=== PATIENT | female | born 2000 | race Caucasian/White ===

== ENCOUNTER 2021-05-09 12:55 | Outpatient (CLI) | payer OTHER, SELFPAY ==
[2021-05-09 13:28] VITALS: TEMP 36.1
[2021-05-09 13:29] VITALS: BP 120/74; PULSE 95; O2SAT 98
[2021-05-09 13:37] VITALS: BMI 26.3
--- NOTE | 2021-05-10 02:50 | OB.TRI.NOTE ---
HPI - General HPI Narrative DEEPIKA ALARCON, is a 20 F at 36.0 weeks gestation who presents to triage for decreased movement. Patient recently diagnosed COVID + and stated has not felt any movement today. Denies any loss of fluid or vaginal bleeding. Maternal Data Information ROSS Calculator Estimated Delivery Date Method Current WG Current Estimate 06/06/21 Manual 36w 1d PFSH PFSH Home Medications polyethylene glycol 3350 [Miralax] 17 g PO PRN PRN 05/09/21 [History Last Taken 05/02/21] [id number]-[id number]-FA [] 1 tab PO DAILY 05/09/21 [History Last Taken 05/09/21] Allergy/AdvReac Type Severity Reaction Status Date / Time No Known Allergies Allergy Verified 05/09/21 13:34 ROS Eyes Eyes: Denies blurry vision Cardiovascular Cardiovascular: Reports none; Denies chest pain at rest, chest pain with activity or dizziness Respiratory/Chest Respiratory/Chest: Denies cough or dyspnea Gastrointestinal Gastrointestinal: Reports none and other; Denies diarrhea or vomiting Genitourinary Genitourinary: Denies dysuria Musculoskeletal Musculoskeletal: Reports none Integumentary Integumentary: Reports none; Denies rash Neurologic Neurologic: Denies dizziness, headache(s) or other visual disturbances Psychiatric Psychiatric: Reports none Physical Exam Const alert and no apparent distress General Appearance: cooperative Orientation / Consciousness: awake Exam Limitations: no limitations HEENT normocephalic Eyes General Eye: normal appearance of both eyes Neck full ROM Chest inspection of chest normal Resp normal respiratory effort and normal air movement Effort and Inspection: symmetric chest movement Auscultation: clear to auscultation bilaterally Cardio regular rate GI soft to palpation, non-tender and non-distended Inspection: and other Back/Spine normal ROM Extremity full ROM, normal capillary refill and no calf tenderness Skin no rashes or lesions noted Neuro oriented x3 and CN's II-XII intact bilaterally Psych mental status grossly normal NST FHR Rate Baby A Baseline: 150 Variability:: Moderate Accelerations:: 15 x 15 Decelerations:: None NST Reactive:: Yes FHR Category:: Category I Uterine Activity:: occasional contractions noted Assessment & Plan (1) 36 weeks gestation of : (2) Decreased movement: QUALIFIERS: Fetus number: single or unspecified fetus Trimester: third trimester Qualified Code(s): O36.8130 - Decreased movements, third trimester, not applicable or unspecified PLAN: NST reactive Cat. 1 tracing Patient feeling movement while on monitor Educated on kick counts and PTL precautions D/C home with follow up in office
== END 2021-05-09 14:45 | disposition home or self-care (01) ==
LOC: WPOUT 13:18 → WP 13:19
PROVIDERS: Referring Provider Advanced Practice Midwife; Visit Provider Advanced Practice Midwife
DX: O36.8130 Decreased fetal movements, third trimester, not applicable or unspecified (principal); Z3A.36 36 weeks gestation of pregnancy
CPT/HCPCS: 59025; 59050; 99218; G0378

== ENCOUNTER 2021-06-09 19:00 | Inpatient (IN) | payer OTHER, SELFPAY ==
[2021-06-09 19:30] VITALS: BMI 27.6
[2021-06-09 19:33] VITALS: PULSE 101; O2SAT 100
[2021-06-09 19:36] VITALS: BP 117/76; PULSE 92
[2021-06-09 19:38] VITALS: TEMP 36.6
[2021-06-09] MEDS: Lactated Ringers 1,000 ML 50 ML IV (19:40)
[2021-06-09 19:57] LABS: Absolute Lymphocyte Count 2.84 X10^3/uL (0.83-4.51); Absolute Neutrophil Count 8.9 X10^3/uL (2.0-7.7); Basophil# 0.03 X10^3/uL; Basophil% 0.2 % (0-1); Eosinophil# 0.03 X10^3/uL; Eosinophils% 0.2 % (0-5); Hematocrit 36.9 % (37-47); Hemoglobin 11.6 g/dL (12.0-15.0); Lymphocyte # 2.84 X10^3/ul (0.83-4.51); Lymphocyte % 22.4 % (19-41); Mean Corp Hgb Conc 31.4 g/dL (32-36); Mean Corpuscular Hgb 25.3 pg (27.0-32.0); Mean Corpuscular Volume 80.6 fL (81-99); Mean Platelet Vol. 12.9 fl (6.2-12.0); Monocyte# 0.74 X10^3/uL; Monocyte% 5.8 % (0-10); NRBC Flagged by Analyzer 0 % (0-5); Neutrophil # 8.94 X10^3/uL (2.7-7.7); Neutrophil % 70.8 % (47-70); Platelet Count 208 K/mm3 (150-450); RBC Distribution Width CV 15.8 % (11.6-14.6); RBC Distribution Width SD 45.5 fl (35.1-43.9); Red Blood Count 4.58 M/mm3 (4.2-5.4); White Blood Count 12.7 K/mm3 (4.4-11.0)
[2021-06-09] MEDS: miSOPROStol 25 MCG TABLET PO (20:23)
[2021-06-09] MEDS: 0.9% Normal Saline Single 100 ML IV.SOLN. INTRA-UTER (20:48)
--- NOTE | 2021-06-09 20:54 | HP.PCM.OB_ITS ---
HPI - General General Date of Admission: 06/09/21 HPI Narrative DEEPIKA ALARCON, is a 20 F who presents at 40w3d for IOL. Her father just this afternoon from [employer]. Desired an induction as soon as possible given family situation. No vb, lof, ctx. Good FM. Maternal Data Information ROSS Calculator Estimated Delivery Date Method Current WG Current Estimate 06/06/21 Manual 40w 3d PFSH PFSH Home Medications polyethylene glycol 3350 [Miralax] 17 g PO PRN PRN 05/09/21 [History Last Taken 05/02/21] [id number]-khs-Tr-FA [] 1 tab PO DAILY 05/09/21 [History Last Taken 06/09/21 08:00] fluticasone propionate [Flonase] 1 spray INTRANASAL PRN PRN 06/09/21 [History Last Taken Unknown] Allergy/AdvReac Type Severity Reaction Status Date / Time No Known Allergies Allergy Verified 06/09/21 19:33 Surgical History History of surgery Social History Smoking Status: Never smoker History Elective abortions Hx Para 0 Spontaneous abortions Hx # Term Pregnancies Ectopic pregnancies Hx # Pregnancies Multiple births # of living children NST FHR Rate Baby A Baseline: 145 Variability:: Moderate Accelerations:: 15 x 15 Decelerations:: None NST Reactive:: Yes Vital Signs Vital Signs Vital Signs: Weight Weight: 181 lb 9.6 oz Body Mass Index (BMI) 27.6 Physical Exam Const alert and no apparent distress General Appearance: comfortable GI soft to palpation and non-tender Extremity normal to inspection Skin no rashes or lesions noted Labs Labs Labs: Blood Type Pending Antibody Screen Pending Hct 36.9 % (37-47) L Hgb 11.6 g/dL (12.0-15.0) L Assessment & Plan (1) 40 weeks gestation of : PLAN: - Admit for scheduled IOL - Routine intrapartum care - Intracervical rush placed in usual fashion and Cytotec PO given - Epidural PRN - PCN for GBS positive - Rapid Covid negative - Pelvis adequate and EFW expected to be less than 4,500 grams - Anticipate vaginal delivery (2) Primiparous: (3) Positive GBS test:
[2021-06-09] MEDS: Acetaminophen 500 MG Tablet PO (21:32)
[2021-06-09 21:37] VITALS: BP 106/67; PULSE 84; TEMP 36.4
[2021-06-09 21:38] VITALS: PULSE 94; O2SAT 100
[2021-06-10] VITALS (51 sets, daily range): BP systolic 93–124; BP diastolic 43–94; PULSE 70–127; RESP 16–46; TEMP 36.1–36.8; O2SAT 86–100
[2021-06-10] MEDS: Oxytocin 30 units/NS 500 ml 30 UNITS/500 ML IV.SOLN IV (01:27)
[2021-06-10] MEDS: Lactated Ringers 500 ML 999 ML IV ×3 (02:08→04:40)
[2021-06-10] MEDS: Penicillin G 3,000,000 Units 50 ML 100 UNITS IV (02:24)
[2021-06-10] MEDS: fentaNYL-bupivacaine (epidural) 100 ML BAG EPIDURAL (03:01)
[2021-06-10] MEDS: Sodium Citrate/Citric Acid 30 ML UDC PO (06:40)
[2021-06-10] MEDS: Acetaminophen 500 MG Tablet PO (06:42)
--- NOTE | 2021-06-10 06:43 | PCM.PN.BLA ---
Progress Note Patient complete and pushing for about 45 min. FHT 160/mod chad/+recurrent variable decels and occasional late decels with pushing/+accels. Cvx 0/100/0. Patient with good pushing effort, narrow pubic arch, no descent noted with pushing. Suspect CPD in the setting of recurrent variable decelerations with pushing. Discussed section including r/b/a and patient desires to proceed with section.
[2021-06-10] MEDS: Cefazolin 2 GM in 0.9% Normal Saline 100 ML IV (06:57)
--- NOTE | 2021-06-10 07:55 | PCM.OPRPT ---
Problems Associated Problem List Diagnoses (1) Primiparous: (2) 40 weeks gestation of : Report of Operation Date of Procedure: 06/10/21 Pre-Operative Diagnosis: 40 week gestation, CPD, intolerance to labor Post-Operative Diagnosis: As above Surgery/Procedure Performed:: Primary low transverse section Description of Surgical Findings:: Narrow pelvis. Thick meconium stained fluid. Normal-appearing placenta with three-vessel cord. Infant in vertex presentation. Normal-appearing uterus, bilateral tubes, bilateral ovaries. Surgeon: Eve Mccarthy gastrointestinal technician: Hector Estes Type of Anesthesia: Epidural Special Medications: None Specimen's removed: Placenta Drains: Shetty Estimated Blood Loss (mL): 500 Fluids Replaced: 1200 Description of Procedure: Patient was complete and pushing for about 30 minutes. A narrow pubic arch was felt with pushing, and CPD was suspected. The patient was having recurrent variable decelerations with pushing. Decision was made to proceed with a section for intolerance and CPD. Patient was taken to the operating room where epidural anesthesia was found to be adequate. She was prepped and draped in dorsal position with a leftward tilt. A Pfannenstiel skin incision was made using a scalpel and this was carried down to the underlying layer of fascia. The fascia was incised in the midline. The fascia was extended laterally using Franks scissors. The fascia was dissected off of the rectus muscles using combination of sharp and blunt dissection. The rectus muscles were in the midline. The peritoneum was entered bluntly with good visualization of the bladder. The incision was extended bluntly. A bladder flap was created. A low transverse incision was made on the uterus with a scalpel. The infant's head was flexed and brought to the hysterotomy. The 's head followed by body was delivered without any force or delay. A viable male infant was delivered atraumatically and the cord was clamped and cut immediately. The infant was handed off to the nursery staff. Cord gases were obtained. The placenta was removed with manual extraction. The uterus was cleared of all clot and debris. Uterus was exteriorized. Hysterotomy was closed in a running locked fashion using Vicryl. Uterus was placed back into the abdomen. FloSeal was placed over the corners of the hysterotomy and pressure applied. Hemostasis noted. The peritoneum was closed in a running fashion with Vicryl. The fascia was closed with PDS in a running fashion. Subcutaneous space was irrigated and made hemostatic with the Bovie cautery. The subcutaneous space was reapproximated with Vicryl. The skin was closed in subcuticular fashion using Vicryl. A dressing was placed. Instrument, sponge, needle counts were correct. The patient was taken recovery in stable condition. Apgars 6,8. Grafts/Implants Used: None Complications None Admit VTE Documentation VTE Present on Admission: No VTE Mechan Device Prophylaxis: SCD's VTE Pharm Prophylaxis ordered?: No
[2021-06-10] MEDS: Oxytocin 30 units/NS 500 ml 30 UNITS/500 ML IV.SOLN 167 UNITS IV (08:28)
[2021-06-10] MEDS: Ketorolac 30 MG/ML Syringe IV ×3 (08:36→21:14)
[2021-06-10] MEDS: 0.9% Saline Lock 10 ML Syringe IV (08:37)
[2021-06-10] MEDS: Lactated Ringers 1,000 ML 100 ML IV (11:50)
[2021-06-10] MEDS: Acetaminophen 500 MG Tablet 1000 MG PO ×2 (12:37→19:01)
[2021-06-11 00:15] VITALS: BP 93/53; PULSE 68; RESP 16; TEMP 36.3
[2021-06-11] MEDS: Acetaminophen 500 MG Tablet 1000 MG PO ×4 (00:18→18:35)
[2021-06-11 03:07] VITALS: BP 88/47; BP 88/52; PULSE 81; RESP 16; TEMP 36.2; O2SAT 73
[2021-06-11 03:31] VITALS: BP 101/62; PULSE 74; RESP 16
[2021-06-11] MEDS: Ketorolac 30 MG/ML Syringe IV (03:33)
[2021-06-11 05:27] LABS: Hematocrit 27.6 % (37-47); Mean Corp Hgb Conc 32.6 g/dL (32-36); Mean Corpuscular Hgb 26.1 pg (27.0-32.0); Mean Platelet Vol. 12.5 fl (6.2-12.0); Platelet Count 155 K/mm3 (150-450); RBC Distribution Width CV 16.3 % (11.6-14.6); RBC Distribution Width SD 46.1 fl (35.1-43.9); Red Blood Count 3.45 M/mm3 (4.2-5.4); White Blood Count 12.8 K/mm3 (4.4-11.0)
--- NOTE | 2021-06-11 07:26 | PCM.PN.OB ---
Subjective Subjective Patient seen at bedside. Sitting up feeding . Pain is controlled with medication. Ambulating and voiding without difficulty. Passing flatus. Denies any SOB, CP , dizziness or headache. with minimal support. Desires discharge home tomorrow. Objective Data Objective Data Vital Signs: Vital Signs Temp Pulse Resp BP Pulse Ox 97.2 F L 74 16 101/62 73 06/11/21 03:07 06/11/21 03:31 06/11/21 03:31 06/11/21 03:31 06/11/21 03:07 Oxygen Delivery Method Room Air Weight: 181 lb 9.6 oz Body Mass Index (BMI) 27.6 Intake & Output: Intake and Output for Last 24 Hours 06/09/21 06/10/21 06/11/21 23:59 23:59 23:59 Intake Total 228.33 / 228.33 5044.44 / 5044.44 Output Total 1450 / 1450 500 / 500 Balance 228.33 / 228.33 3594.44 / 3594.44 -500 / -500 Lab / Micro Data Result Diagrams: 06/11/21 05:15 Labs: Laboratory Results - last 24 hr 06/11/21 05:15: WBC 12.8 H, RBC 3.45 L, Hgb 9.0 L, Hct 27.6 L, MCV 80.0 L, MCH 26.1 L, MCHC 32.6, RDW Std Deviation 46.1 H, RDW Coeff of Harshad 16.3 H, Plt Count 155, MPV 12.5 H Micro: Microbiology 06/09/21 19:45 Nasal Secretion SARS-CoV-2 Antigen (Rapid) - Final ROS Eyes Eyes: Denies blurry vision, change in vision or spots in vision ENT HEENT: Denies dizziness or headache(s) Cardiovascular Cardiovascular: Denies abdominal pain, chest pain or dyspnea Respiratory/Chest Respiratory/Chest: Denies cough, dyspnea, shortness of breath at rest or shortness of breath with exertion Gastrointestinal Gastrointestinal: Denies abdominal pain, diarrhea or vomiting Genitourinary Genitourinary: Denies change in urinary stream, difficulty urinating or dysuria Musculoskeletal Musculoskeletal: Reports none Integumentary Integumentary: Denies rash Neurologic Neurologic: Denies dizziness, headache(s), memory loss or weakness Physical Exam Narrative Dressing with drainage that is not outside of marked lines Const alert and no apparent distress General Appearance: cooperative and comfortable Exam Limitations: no limitations HEENT normocephalic Eyes General Eye: normal appearance of both eyes Neck full ROM General: normal visual inspection Chest Chest: symmetrical chest wall rise Resp normal respiratory effort and normal air movement Effort and Inspection: symmetric chest movement Auscultation: clear to auscultation bilaterally Cardio regular rate and regular rhythm GI normal to inspection, nondistended, normoactive bowel sounds Back/Spine normal ROM Extremity full ROM and no calf tenderness General Extremity: normal exam except as noted Skin no rashes or lesions noted Neuro CN's II-XII intact bilaterally Psych mental status grossly normal Assessment & Plan (1) Status post primary low transverse section: (2) Mother currently breast-feeding: PLAN: POD #1 Primary C/S Pain control Routine care support Anticipate discharge home tomorrow
[2021-06-11 09:27] VITALS: BP 95/58; PULSE 80; RESP 16; TEMP 36.7; O2SAT 97
[2021-06-11] MEDS: Senna/Docusate Sodium 1 Tablet PO (09:31)
[2021-06-11] MEDS: Ibuprofen 600 MG Tablet PO ×3 (09:31→20:35)
[2021-06-11 13:00] VITALS: BP 99/58; PULSE 86; RESP 16; TEMP 36.9; O2SAT 96
[2021-06-11 20:31] VITALS: BP 99/64; PULSE 85; RESP 18; TEMP 36.5
[2021-06-12 02:37] VITALS: BP 109/62; PULSE 71; RESP 18; TEMP 36.2
[2021-06-12] MEDS: Acetaminophen 500 MG Tablet 1000 MG PO ×2 (02:41→08:53)
[2021-06-12] MEDS: Ibuprofen 600 MG Tablet PO ×2 (02:41→08:54)
--- NOTE | 2021-06-12 07:43 | PCM.PN.OB ---
Subjective Subjective Patient seen at bedside, doing well. Patient reports good pain control. Mild lochia. Breast-feeding without difficulty. Denies any headaches or visual changes. Patient reports voiding without difficulty. Tolerating regular diet. Objective Data Objective Data Vital Signs: Vital Signs Temp Pulse Resp BP Pulse Ox 97.2 F L 71 18 109/62 96 06/12/21 02:37 06/12/21 02:37 06/12/21 02:37 06/12/21 02:37 06/11/21 13:00 Oxygen Delivery Method Room Air Weight: 82.372 kg Body Mass Index (BMI) 27.6 Intake & Output: Intake and Output for Last 24 Hours 06/10/21 06/11/21 06/12/21 23:59 23:59 23:59 Intake Total 5044.44 / 5044.44 Output Total 1450 / 1450 500 / 500 Balance 3594.44 / 3594.44 -500 / -500 Lab / Micro Data Result Diagrams: 06/11/21 05:15 Micro: Microbiology 06/09/21 19:45 Nasal Secretion SARS-CoV-2 Antigen (Rapid) - Final Physical Exam Narrative dressing has old drainage, nothing active appearing at this time. Const alert and oriented x3 General Appearance: cooperative HEENT normocephalic Neck General: normal visual inspection GI soft to palpation and non-distended GI Narrative: Fundus firm Extremity normal to inspection and no calf tenderness Skin no rashes or lesions noted Neuro oriented x3 and CN's II-XII intact bilaterally Psych mental status grossly normal Assessment & Plan (1) Status post primary low transverse section: (2) Mother currently breast-feeding: PLAN: POD#2 , Doing well Routine care pain mgmt monitor VS ambulation dc home
--- NOTE | 2021-06-12 07:45 | DCINST_ITS ---
Discharge Instructions Diet Discharge Diet: No restrictions Activity May resume sexual activity in: 6-8 weeks Lifting Restrictions: 25 Dressing / Incision Call your doctor if your incision/area has: Continuous Slow Oozing, Sudden Increased Bleeding, Increased Pain/ Swelling, Increased Redness, Foul Smelling Discharge and Swelling at the incision site Call your doctor if you observe: Fever of 101 or Higher, Inability to urinate, Using more than 1 pad per hour and Uncontrolled pain Additional Dressing/Incision Instructions:: remove dressing at 7 days post op- if it becomes saturated prior to that time you may remove it. Let soap and water run over incision sites and dab dry. keep incision clean and dry. Follow Up Care Please Follow Up With: Shannan Nicole MD When: 1-2 weeks post of incision check and again at 6 weeks post . [phone] Test Results: Test results from this visit will be discussed in further detail at your follow-up appointment, if applicable. Discharge Plan Admission Admit Date/Time: 06/09/21 19:00 Attending Provider: Eve Mccarthy Primary Care Provider: Care Physician,No Primary Discharge Orders/Prescriptions Prescriptions: New acetaminophen 500 mg Tablet 1,000 mg PO Q6H Qty: 0 RF: 0 ibuprofen 600 mg Tablet 600 mg PO Q6H Qty: 0 RF: 0 oxycodone 5 mg Tablet 5 - 10 mg PO Q4H PRN PRN (Reason: Pain Score 4-10) 7 Days Qty: 10 RF: 0 simethicone [Mi-Acid Gas Relief(simethicon)] 80 mg Tablet,Chewable 80 mg PO PCHS PRN (Reason: Indigestion/stomach pain) Qty: 0 RF: 0 Continued polyethylene glycol 3350 [Miralax] 17 gram/dose Powder 17 g PO PRN PRN (Reason: Constipation) RF: 0 zdvjkkho-cwc-Gz-FA 1 mg Tablet 1 tab PO DAILY RF: 0 fluticasone propionate 50 mcg/actuation [place],Suspension 1 spray INTRANASAL PRN PRN (Reason: Allergy Symptoms) RF: 0 Referrals / Follow Up: Care Physician,No Primary [Primary Care Provider] - Disposition Disposition (needs filled in before D/C Order can be placed): Home, Self Care
--- NOTE | 2021-06-12 07:51 | PCM.DC.BLA ---
Discharge Summary Date of Admission: 06/09/21 Date of Discharge: 06/12/21 Summary: Patient was admitted to [facility] on 06/09/2021 for labor induction. Patient progressed to complete and pushing. She had arrest of descent and underwent a low transverse section performed by Dr. Mccrathy. She had an uncomplicated postoperative course and was discharged home on postoperative day #2. Meaningful Use Info Meaningful Use Diagnoses (Choose all that apply): None applicable Discharge Plan Admission Admit Date/Time: 06/09/21 19:00 Attending Provider: Eve Mccarthy Primary Care Provider: Care Physician,Leonora Primary Discharge Orders/Prescriptions Prescriptions: New acetaminophen 500 mg Tablet 1,000 mg PO Q6H Qty: 0 RF: 0 ibuprofen 600 mg Tablet 600 mg PO Q6H Qty: 0 RF: 0 oxycodone 5 mg Tablet 5 - 10 mg PO Q4H PRN PRN (Reason: Pain Score 4-10) 7 Days Qty: 10 RF: 0 simethicone [Mi-Acid Gas Relief(simethicon)] 80 mg Tablet,Chewable 80 mg PO PCHS PRN (Reason: Indigestion/stomach pain) Qty: 0 RF: 0 Continued polyethylene glycol 3350 [Miralax] 17 gram/dose Powder 17 g PO PRN PRN (Reason: Constipation) RF: 0 ndhbovtj-abg-Tv-FA 1 mg Tablet 1 tab PO DAILY RF: 0 fluticasone propionate 50 mcg/actuation [place],Suspension 1 spray INTRANASAL PRN PRN (Reason: Allergy Symptoms) RF: 0 Referrals / Follow Up: Care Physician,No Primary [Primary Care Provider] - Disposition Disposition (needs filled in before D/C Order can be placed): Home, Self Care
[2021-06-12 08:55] VITALS: BP 104/63; PULSE 85; RESP 16; TEMP 36.7
[2021-06-12] MEDS: Senna/Docusate Sodium 1 Tablet PO (09:41)
== END 2021-06-12 12:00 | disposition home or self-care (01) | DRG 787 ==
PROVIDERS: Admitting Provider Obstetrics & Gynecology; Referring Provider Obstetrics & Gynecology; Visit Provider Obstetrics & Gynecology
DX: O48.0 Post-term pregnancy (principal); O98.82 Other maternal infectious and parasitic diseases complicating childbirth; Z3A.40 40 weeks gestation of pregnancy; B95.1 Streptococcus, group B, as the cause of diseases classified elsewhere; O76 Abnormality in fetal heart rate and rhythm complicating labor and delivery; O77.0 Labor and delivery complicated by meconium in amniotic fluid; Z37.0 Single live birth
CPT/HCPCS: 59025; 59050; 85025; 85027; 86850; 86900; 86901; 87426; 99218; J7120; A4216; G0378; J2405

== ENCOUNTER 2022-10-22 09:35 | Inpatient (IN) | payer OTHER, MEDICAID, SELFPAY ==
--- NOTE | 2022-10-13 13:26 | HP.PCM_ITS ---
History and Physical Date of Admission: 09/24/22 HPI: The patient is a 22 year old female presenting for pre-operative visit. She is scheduled for , for previous c/s and 39 weeks on 10/22/22. Procedure discussed along with risks, benefits and complications. Other alternatives discussed for management. Consent form signed? Yes. ? ? PAST MEDICAL HISTORY PAST MEDICAL HISTORY Diagnosis Date ? Acne 10/10/2012 ? Constipation 10/10/2012 ? Iron deficiency anemia 09/17/2022 ? Menarche ? Age [age] Years Old ? NEGATIVE HISTORY OF 10-10-2012 ? Normal Color Vision ? Pes planus (flat feet) 10/10/2012 ? ? PAST SURGICAL HISTORY PAST SURGICAL HISTORY Procedure Laterality Date ? SECTION HX ? 06/10/2021 ? LTCS ? COLONOSCOPY ? 05/09/2013 ? EGD ? 05/09/2013 ? ? ? CURRENT MEDICATIONS Current Outpatient Medications Medication Sig Dispense Refill ? iron sucrose (VENOFER) 200 mg iron/10 mL soln injection Inject 10 mL intravenously as directed for 4 doses. 10 mL 3 ? pantoprazole DR (PROTONIX) 20 mg tablet Take 1 tablet by mouth once daily. 30 tablet 2 ? ondansetron orally disintegrating (ZOFRAN ODT) 4 mg disintegrating tablet Take 1 tablet by mouth every 8 hours as needed for nausea/vomiting. 30 tablet 1 ? Frokvtqg-Kp-Xwe-Fe-FA ( VITAMIN) tab Take 1 tablet by mouth. ? polyethylene glycol 3350 (MIRALAX, GLYCOLAX) 17 gram/dose powder Take by mouth once daily. ? ? ? fluticasone (FLONASE) 50 mcg/actuation nasal spray Use 1 [place] in each nostril daily at bedtime. 1 Bottle 0 ? Current Facility-Administered Medications Medication Dose Route Frequency Provider Last Rate Last Admin ? NaCl (PF) 0.9% 10-20 mL injection 10-20 mL INTRAVENOUS PRN Serina Tyler MD ? ? ALLERGIES: Patient has no known allergies. ? PERSONAL HISTORY: SOCIAL HISTORY Social History ? Tobacco Use ? Smoking status: Never ? Smokeless tobacco: Never Vaping Use ? Vaping Use: Never used Substance Use Topics ? Alcohol use: No ? Drug use: No ? FAMILY HISTORY: FAMILY HISTORY FAMILY HISTORY Problem Relation Age of Onset ? Diabetes Mother ? ? other (covid complications) Father ? ? No Known Problems Sister ? ? No Known Problems Sister ? ? Diabetes Maternal Grandmother ? ? No Known Problems Maternal Grandfather ? ? Breast Cancer Paternal Grandmother ? ? No Ocular Disease No Family History ? ? ? REVIEW OF SYMPTOMS: GENERAL: denies fevers or chills ENDOCRINOLOGY: has not been on steroids Cardiology : denies palpitations or chest pain Respiratory: denies SOB or cough Hematology: denies history of prolonged bleeding or easy bruising or VTE Allergy: Denies history of personal or family history of allergy to anesthesia ? PHYSICAL EXAMINATION: ? VITALS: Blood pressure 98/62, weight 193 lb (87.5 kg), last menstrual period 01/04/2022, currently . ? GENERAL: The patient is well nourished, well hydrated in no acute distress. , The patient is oriented to time, place, and person. NECK: Supple. No lynphadenopathy, normal thyroid, no thyromegaly. LUNGS: Clear to auscultation bilaterally. no wheezes, rhonchi or rales HEART: Regular rate and rhythm, Normal heart sounds, and No murmurs or gallops abd- soft, nontender, gravid ext- trace edema lower extremeties ? IMPRESSION: w Estimated Date of Delivery: 10/29/22 ? PLAN: The risks/benefits/alternatives and personal involved for the planned c- section were reviewed with the patient. Her questions were answered to her satisfaction and she desires to proceed. Consent was signed. I reviewed with her postop instructions and expectations. ? ? I have reviewed and updated past medical and surgical history, medications and allergies Assessment & Plan Assessment/Plan (1) 39 weeks gestation of : (2) Previous delivery affecting :
[2022-10-22] VITALS (17 sets, daily range): BP systolic 83–102; BP diastolic 35–65; PULSE 48–81; RESP 12–18; TEMP 36.1–36.8; O2SAT 95–100; BMI 29.2
[2022-10-22] MEDS: Lactated Ringers 1,000 ML 999 ML IV (10:05)
[2022-10-22 10:28] LABS: Absolute Lymphocyte Count 2.38 X10^3/uL (0.83-4.51); Absolute Neutrophil Count 4.6 X10^3/uL (2.0-7.7); Basophil# 0.04 X10^3/uL; Basophil% 0.5 % (0-1); Eosinophil# 0.03 X10^3/uL; Eosinophils% 0.4 % (0-5); Hematocrit 36.3 % (37-47); Hemoglobin 11.3 g/dL (12.0-15.0); Lymphocyte # 2.38 X10^3/ul (0.83-4.51); Lymphocyte % 32.2 % (19-41); Mean Corp Hgb Conc 31.1 g/dL (32-36); Mean Corpuscular Hgb 25.1 pg (27.0-32.0); Mean Corpuscular Volume 80.7 fL (81-99); Mean Platelet Vol. 10.8 fl (6.2-12.0); Monocyte# 0.29 X10^3/uL; Monocyte% 3.9 % (0-10); NRBC Flagged by Analyzer 0 % (0-5); Neutrophil # 4.63 X10^3/uL (2.7-7.7); Neutrophil % 62.7 % (47-70); POSITIVE MORPHOLOGY YES; Platelet Count 189 K/mm3 (150-450); RBC Distribution Width CV 24.2 % (11.6-14.6); RBC Distribution Width SD 66.5 fl (35.1-43.9); White Blood Count 7.4 K/mm3 (4.4-11.0)
[2022-10-22 10:30] LABS: Differential Indicated SCAN CRITERIA MET
[2022-10-22 10:47] LABS: Anisocytosis 1+; Differential Comment SCANNED
[2022-10-22] MEDS: Lactated Ringers 1,000 ML 150 ML IV (11:04)
[2022-10-22] MEDS: Sodium Citrate/Citric Acid 30 ML UDC PO (11:53)
[2022-10-22] MEDS: Acetaminophen 500 MG Tablet 1000 MG PO ×2 (11:53→18:42)
[2022-10-22] MEDS: Cefazolin 2 GM in 0.9% Normal Saline 100 ML IV (11:59)
--- NOTE | 2022-10-22 12:58 | EX.PCM.OBRPT ---
Assessment & Plan (1) 39 weeks gestation of : (2) Previous delivery affecting : Maternal Data Information ROSS Calculator Estimated Delivery Date Method Current WG Current Estimate 06/06/21 Manual 111w 6d Final ROSS: 10/29/22 Gestational age: 39 0/7 Details Operative Information Date of Procedure: 10/22/22 Pre-Operative Diagnosis: previous c/s, breech Post-Operative Diagnosis: same Classification: Scheduled Procedure Type: low transverse seating and mobility technologist #1: Andree Venegas Type of Anesthesia: Spinal Anesthesiologist: Luz Marina Gonzalez Special Medications: duramorph Antibiotic Given: Ancef 2 grams IV x1 Drain: Shetty to straight drain Estimated Blood Loss: 800 Fluids Replaced: 1000 Procedure Start Time: 12:20 Procedure Stop Time: 12:59 Time of Delivery: 12:25 Findings Description of Procedure: The patient was taken to the operating room. She was prepped and draped in the dorsal supine position with a leftward tilt. A Pfannenstiel skin incision was made approximately 2 cm above the symphysis pubis and carried through to underlying layer fascia with the scalpel. The fascia was incised incised in the midline and extended laterally with the Franks scissors. The fascia was dissected off the rectus muscles with blunt and sharp dissection. The rectus muscles were in the midline and the peritoneum was entered bluntly. The peritoneal incision was stretched and the bladder blade was placed. The uterine incision was made in a low transverse fashion with the scalpel and extended superiorly and inferiorly with blunt dissection. The amniotic membranes were ruptured bluntly and clear amniotic fluid returned. The 's buttocks were brought to the incision after large amount of fluid returned. The legs were then swept out individually. The infant was delivered to the shoulders and the arms were swept out and the head was delivered in a flexed position without any traction at all. The mouth and nares were bulb suctioned. The cord was clamped and cut as the was stimulated. Cord clamping was not delayed as the did not immediately cry but did grunt.. The infant was handed off to the waiting nursing staff. The placenta was delivered with fundal massage and gentle traction in the standard fashion. The uterus was exteriorized and cleared of all clots and debris. The cervix was dilated with a ring forcep. The uterine incision was closed with #1 Vicryl in a running locked fashion. 2 [id number] 0 Vicryl sutures were needed around a sinus on the right side to obtain hemostasis. The incision was examined and was found to be hemostatic. The uterus was placed back into the peritoneal cavity and hemostasis was again confirmed. The rectus muscles were examined and any bleeding was Bovie cauterized. The parietal peritoneum and rectus muscles were closed en bloc with an 0 Vicryl running suture. The surgical teams outer gloves were then changed. The rectus fascia was examined and any bleeding was Bovie cauterized and the rectus fascia was closed with 1 PDS suture in a running standard fashion. The subcutaneous tissue was examining and any bleeding was Bovie cauterized. The subcutaneous tissue was reapproximated with 3-0 Vicryl suture. The skin was closed in a subcuticular fashion by the METAL WINDOW SCREEN ASSEMBLER with me present in the labor and delivery suite. I performed the remainder of the procedure with assistance. All sponge, lap, and needle counts were correct. The patient was taken to her room for recovery in a stable condition. Presentation: Positive for Daryl Breech Amniotic Membrane Rupture Type: Spontaneous Amniotic Fluid Description: Clear Placental Delivery Description: Manual Removal Placenta Disposition: [facility] Specimen(s) Sent to Pathology: none Cord Vessel Description: 3 Vessels Cord Entanglement: None Cord Gases: ABG and VBG Infant A Gender: Female (Afua) (1 minute): 8 (5 minute): 9 Delayed Cord Clamping: No Complications Complications: none
[2022-10-22] MEDS: Oxytocin 15 Units/NS 250ml 15 UNITS/250 ML IV.SOLN 83 UNITS IV (13:25)
[2022-10-22] MEDS: Ketorolac 30 MG/ML Syringe IV ×2 (13:31→19:59)
[2022-10-22] MEDS: 0.9% Saline Lock 10 ML Syringe IV (13:32)
[2022-10-22] MEDS: Lactated Ringers 1,000 ML 100 ML IV (16:31)
[2022-10-23] MEDS: Acetaminophen 500 MG Tablet 1000 MG PO ×4 (00:32→18:09)
[2022-10-23 00:35] VITALS: BP 99/48; PULSE 71; RESP 18; TEMP 36.8; O2SAT 97
[2022-10-23] MEDS: Ketorolac 30 MG/ML Syringe IV ×2 (02:11→09:11)
[2022-10-23 04:00] VITALS: BP 90/52; PULSE 67; RESP 16; O2SAT 98
[2022-10-23 04:24] LABS: Hematocrit 33.3 % (37-47); Hemoglobin 10.2 g/dL (12.0-15.0); Mean Corp Hgb Conc 30.6 g/dL (32-36); Mean Corpuscular Hgb 25.1 pg (27.0-32.0); POSITIVE MORPHOLOGY YES; Platelet Count 168 K/mm3 (150-450); RBC Distribution Width CV 24.6 % (11.6-14.6); Red Blood Count 4.06 M/mm3 (4.2-5.4); White Blood Count 9.6 K/mm3 (4.4-11.0)
[2022-10-23 04:27] LABS: Scan Indicated on CBC? Y/N YES- FLAGS NOTED
[2022-10-23 05:13] LABS: Differential Comment SCANNED
[2022-10-23 09:00] VITALS: BP 108/62; PULSE 75; RESP 20; TEMP 36.6
[2022-10-23] MEDS: Senna/Docusate Sodium 1 Tablet PO (09:11)
[2022-10-23] MEDS: 0.9% Saline Lock 10 ML Syringe IV (09:12)
--- NOTE | 2022-10-23 09:14 | PCM.PN.OB ---
Subjective Subjective Well controlled. Average lochia. No complaints today. Tolerating regular diet and ambulating and urinating without difficulty. Objective Data Objective Data Vital Signs: Vital Signs Temp Pulse Resp BP Pulse Ox O2 Del Method 98.3 F 67 16 90/52 L 98 Room Air 10/23/22 00:35 10/23/22 04:00 10/23/22 04:00 10/23/22 04:00 10/23/22 04:00 10/23/22 04:00 Oxygen Delivery Method Room Air Weight: 87.09 kg Body Mass Index (BMI) 29.2 Intake & Output: Intake and Output for Last 24 Hours 10/21/22 10/22/22 10/23/22 23:59 23:59 23:59 Intake Total 1474 / 1474 996.67 / 996.67 Output Total 1450 / 1450 500 / 500 Balance 496.67 / 496.67 Lab / Micro Data Result Diagrams: 10/23/22 04:15 Labs: Laboratory Results - last 24 hr 10/22/22 10:05: WBC 7.4, RBC 4.50, Hgb 11.3 L, Hct 36.3 L, MCV 80.7 L, MCH 25.1 L, MCHC 31.1 L, RDW Std Deviation 66.5 H, RDW Coeff of Harshad 24.2 H, Plt Count 189, MPV 10.8, Immature Gran % (Auto) 0.300, Neut % (Auto) 62.7, Lymph % (Auto) 32.2, Isabella % (Auto) 3.9, Eos % (Auto) 0.4, Baso % (Auto) 0.5, Absolute Neuts (auto) 4.6, Absolute Lymphs (auto) 2.38, Nucleated RBC % 0, Differential Comment SCANNED, Anisocytosis 1+ 10/22/22 10:05: Blood Type A POSITIVE, Antibody Screen NEGATIVE 10/23/22 04:15: WBC 9.6, RBC 4.06 L, Hgb 10.2 L, Hct 33.3 L, MCV 82.0, MCH 25.1 L, MCHC 30.6 L, RDW Std Deviation 70.0 H, RDW Coeff of Harshad 24.6 H, Plt Count 168, MPV 11.0, Differential Comment SCANNED Physical Exam Const alert General Appearance: cooperative GI GI Narrative: soft, moderate distention, fundus firm, appropriately tender. Abdominal bandage clean dry and intact Assessment & Plan (1) delivery delivered: PLAN: Postoperative day #1. Patient and are doing well. Patient is breast-feeding. Mild acute blood loss anemia appropriate for blood loss during surgery. Continue with routine care. Likely discharge home tomorrow
[2022-10-23 14:50] VITALS: BP 103/58; PULSE 88; RESP 16; TEMP 36.6
[2022-10-23] MEDS: Ibuprofen 600 MG Tablet PO ×2 (14:54→20:03)
[2022-10-23 21:59] VITALS: BP 98/50; PULSE 68; RESP 16; TEMP 36.6; O2SAT 98
[2022-10-24] MEDS: Acetaminophen 500 MG Tablet 1000 MG PO ×2 (00:03→06:20)
[2022-10-24] MEDS: Ibuprofen 600 MG Tablet PO ×2 (01:56→07:57)
[2022-10-24 02:11] VITALS: BP 108/62; PULSE 73; RESP 16; TEMP 36.5; O2SAT 95
[2022-10-24 07:53] VITALS: BP 100/63; PULSE 76; RESP 16; TEMP 36.6; O2SAT 98
--- NOTE | 2022-10-24 09:16 | PCM.DC.SUM ---
Providers Date of Admission: 10/22/22 Primary Care Physician: No Primary Care Phys Reason For Visit: C SECTION DELIVERY Diagnosis Discharge Diagnosis (1) S/P section: Status: Acute Code(s): Z98.891 - History of uterine scar from previous surgery (2) Care and examination of lactating mother: Status: Acute Code(s): Z39.1 - Encounter for care and examination of lactating mother Plan PO day 2 Repeat C/S Routine care Pain control support D/C home with follow up in office Medications at Discharge Home Medications [id number] 1 mg tablet 1 tab PO DAILY 05/09/21 Hospital Course Operations section Summary of Care Provided Hospital Course: Repeat section. Hosptial course was uneventful Physical Exam Narrative Patient seen at bedside. Pain controlled. Ambulating and voiding without difficulty. Pain is controlled with PO medications. Desires discharge home today. Denies any headache, dizziness, SOB or CP. Dressing is dry and intact Const alert and no apparent distress General Appearance: cooperative and comfortable Exam Limitations: no limitations HEENT normocephalic Eyes General Eye: normal appearance of both eyes Neck full ROM General: normal visual inspection Chest Chest: symmetrical chest wall rise Resp normal respiratory effort and normal air movement Effort and Inspection: symmetric chest movement Auscultation: clear to auscultation bilaterally Cardio regular rate and regular rhythm GI normal to inspection, nondistended, normoactive bowel sounds Back/Spine normal ROM Extremity full ROM and no calf tenderness General Extremity: normal exam except as noted Skin no rashes or lesions noted Neuro CN's II-XII intact bilaterally Psych mental status grossly normal Weight / BMI Weight Weight: 192 lb Body Mass Index (BMI) 29.2 ABG / Lab / Microbiology Data Result Diagrams: 10/23/22 04:15 D/C Instructions Discharge Diet: No restrictions Discharge Activity: Return to Normal Activity, May Not Drive (2 weeks) and May Shower May resume sexual activity in: 6-8 weeks Weight Bearing Status: Weight bearing as tolerated Call your doctor if you observe: Fever of 101 or Higher, Inability to urinate, Inability to have a bowel movement, Using more than 1 pad per hour, Shortness of breath, Dizziness, Chest pain, Calf discomfort and Uncontrolled pain Suture Line Care: Avoid Pulling/Pushing Change Dressing in: leave in place till F/U Please Follow Up With: Abigail Saleh MD When: within 10 days Meaningful Use Info Meaningful Use Diagnoses (Choose all that apply): None applicable Discharge Plan Admission Admit Date/Time: 10/22/22 09:35 Primary Reason for Your Visit: Repeat C/S Attending Provider: Abigail Saleh Primary Care Provider: Care Physician,No Primary Discharge Orders/Prescriptions Prescriptions: No Action [id number] 1 mg Tablet 1 tab PO DAILY Referrals / Follow Up: Care Physician,No Primary [Primary Care Provider] - Disposition Disposition (needs filled in before D/C Order can be placed): Home, Self Care
[2022-10-24] MEDS: Senna/Docusate Sodium 1 Tablet PO (10:41)
== END 2022-10-24 11:20 | disposition home or self-care (01) | DRG 788 ==
PROVIDERS: Admitting Provider Obstetrics & Gynecology; Visit Provider Obstetrics & Gynecology
PROC: 10D00Z1 Extraction of Products of Conception, Low, Open Approach (ICD-10-PCS; CPT 59514; principal; 2022-10-22 11:45)
DX: O34.211 Maternal care for low transverse scar from previous cesarean delivery (principal); O32.1XX0 Maternal care for breech presentation, not applicable or unspecified; Z37.0 Single live birth; Z3A.39 39 weeks gestation of pregnancy
CPT/HCPCS: 59025; 85025; 85027; 86850; 86900; 86901; 94762; 99221; J7120; A4216; G0378; J2405